=== PATIENT | male | born 1960 | race Caucasian/White ===

== ENCOUNTER 2017-02-03 14:44 | Emergency (ER) | payer OTHER ==
[2017-02-03] MEDS ORDERED: Sodium Chloride 0.9% 10 ML Syringe FLUSH PRN (15:09)
[2017-02-03 15:18] VITALS: BP 142/81
[2017-02-03 16:11] LABS: CHLORIDE,CL 105 mmol/L (98-107); SODIUM,NA 142 mmol/L (136-145)
--- NOTE | 2017-02-03 22:17 | ER ---
Date of Service: 02/03/2017 SUBJECTIVE: Jesenia presents to the emergency room with complaints of chronic fatigue. He states he has been experiencing this for over a month. The patient states that he occasionally has issues with his visual acuity. He states that this is an intermittent problem and he states that he is not experiencing this today. He also complains of lack of appetite. He states that he will have a small bite of food and then be full and nauseated and unable to eat anything else. The patient does have a history of vitamin D deficiency and vitamin B12 deficiency and previously had been on these medications but stopped taking them on the advice of his chiropractor. He also has a history of hypertension and stopped taking his antihypertensive agents. He was hospitalized in 2013 with hypokalemia and also was on oral potassium and he states that he is currently not taking this either. He states that he is again fatigued and is experiencing chills and vision changes. PAST MEDICAL HISTORY: 1. Hypertension. 2. Vitamin D deficiency. 3. Vitamin B12 deficiency. 4. Hypokalemia. MEDICATIONS: None. ALLERGIES: NKDA. REVIEW OF SYSTEMS: General: Positive for chills, weakness, and fatigue. HEENT: No sore throat, rhinorrhea, congestion. Respiratory: No shortness of breath. Cardiac: Denies any substernal chest pain. No jaw, arm, neck, or back pain. Gastrointestinal: Positive for early satiety and postprandial nausea. Denies any melena, hematochezia, or hematemesis. : Denies any dysuria. Musculoskeletal: Does complain of some mild myalgias and arthralgias. Neurologic: Occasionally states that he feels like he is going to "pass out." He denies any numbness or tingling in his extremities or difficulties with speech or ambulation or other focal neuro symptoms. PHYSICAL EXAMINATION: General: This is a 56-year-old male patient, who is in no acute distress. Vital Signs: Blood pressure is 142/81, pulse rate 79, temperature is 35.9, respiratory rate 16, O2 saturations 98%. Skin: Warm, pink, and dry. HEENT: Head is normocephalic, atraumatic. Eyes, PERRLA. Extraocular movements are intact. There is no funduscopic papilledema noted. Visual higginbotham are within normal limits. Mouth, oral mucosa is moist. Ears, TMs are clear. Neck: Supple without masses. There is no lymphadenopathy. No carotid bruits are noted. Lungs: Clear to auscultation. Heart: Regular rate and rhythm. No murmur noted. Normal S1, S2. No S3 or S4. Abdomen: Soft, nontender. There is no hepatosplenomegaly noted. There is no masses noted. Extremities: Without edema. Neurologic: He is alert and oriented, answers all questions appropriately. His speech is fluent. His gait is within normal limits. LABORATORY DATA: WBCs 8.5, hemoglobin is 14.8, platelets are 224. PT is 10.6, INR is 0.9. Sodium is 142, potassium is 3.3, chloride is 105, bicarb is 25, BUN is 12, creatinine is 1.1. Creatinine clearance is 80.34. GFR is greater than 60. Glucose is 86, lactic acid is 1.2, calcium is 9.2, corrected calcium is 9.12. Total bilirubin is 0.8, AST is 25, ALT is 41, alkaline phosphatase is 83, CK is 123, CK-MB is 0.8. Troponin is less than 0.2, total protein is 7.3, albumin is 3.2, TSH is 1.408. Urinalysis reveals specific gravity of 1.020. PH is 7.0, negative for protein and glucose, nitrates and leukocytes. Does have a trace of ketones. Free T3 and T4 and B12 were obtained and are pending. CT scan of the patient's brain was obtained and did not reveal any acute pathology. ASSESSMENT: 1. Vertigo. 2. Lightheadedness. 3. Weakness. 4. Fatigue. PLAN: I did start him back on his potassium. We will await the results of his B12 to determine if he needs to start on this. I did arrange a carotid ultrasound for this patient. The Radiology Department will contact him regarding an appointment. Appointment was made for him to follow up with Dr. Bush at [facility] on Thursday, 02/10 at 2:20 p.m. in the afternoon. He is return to the ER if he develops any chest pain, shortness of breath, weakness, lightheadedness, headache, difficulties with speech or ambulation, or other worrisome signs or symptoms. All questions were answered. MWK: 02/03/2017 17:40:22 MODL: 02/03/2017 22:07:37 /[id number]
== END 2017-02-03 18:10 | disposition home or self-care (01) ==
LOC: VM.ED 14:44
DX: R53.83 Other fatigue (principal); R42 Dizziness and giddiness; R53.1 Weakness; I10 Essential (primary) hypertension
CPT/HCPCS: 36415; 70450; 80053; 81001; 82550; 82553; 82607; 83605; 84439; 84443; 84481; 84484; 85025; 85610; 86140; 93005; 99285

== ENCOUNTER 2017-02-26 07:55 | Day surgery (SDC) | payer OTHER ==
[~2017-02-26 07:55] MED LIST: Lactated Ringers 1,000 ML IV SCH
[2017-02-26] MEDS ORDERED: Propofol 200 MG/20 ML SDV ONE (09:31)
[2017-02-26] MEDS ORDERED: fentaNYL 100 MCG/2 ML SDV ONE (09:32)
--- NOTE | 2017-02-26 12:37 | OR ---
DATE OF SURGERY: 02/26/2017. REFERRING PROVIDER: Yordan Bush M.D. PRE-OPERATIVE DIAGNOSES: History of colon polyps. Last colonoscopy in Jan, 2014 revealed 2 tubular adenomas. There is no known family history of colon cancer or colon polyps. POST-OPERATIVE DIAGNOSES: 1. Mild diffuse diverticulosis. 2. Mild hemorrhoids, internal. 3. Right-sided palpable prostate nodule. I do recommend referral to Urology for further evaluation. PROCEDURE: Colonoscopy. SURGEON: Sergo Gunderson M.D. ANESTHESIA: Monitored anesthesia care. BOWEL PREP: Good. DESCRIPTION OF OPERATION: Yaneth is a 56-year-old male. The patient was brought to the endoscopy suite after discussing risks and benefits of the procedure. Informed consent was obtained for conscious sedation and colonoscopy with or without biopsy and/or polypectomy. We also discussed possibility of missed lesions. Pre-procedure exam was unremarkable. IV, oxygen, and monitors were placed. The patient was placed in the left lateral decubitus position. Sedation was administered and a digital rectal exam was performed and it did reveal a palpable right-sided prostate nodule which was smooth. Colonoscope was passed into the rectum and slowly advanced all the way to the cecum. Cecum was viewed and photographed. The colonoscope was slowly withdrawn and the mucosa was closed observed in a direct circumferential manner. Colonoscope was slowly withdrawn. Mucosa was closely observed in a direct circumferential manner. There was diffuse mild diverticulosis noted. Otherwise, the ascending colon was unremarkable. Transverse colon was unremarkable. Descending colon was unremarkable. Sigmoid colon was unremarkable. Retroflexion was performed. Rectal mucosa did reveal some mild internal hemorrhoids, not acutely inflamed. Scope was removed. The patient tolerated the procedure well. The patient was monitored until that baseline status. Discharge instructions were reviewed and the patient was discharged in good condition. COMPLICATIONS: None. TOTAL TIME: 19 minutes. ESTIMATED BLOOD LOSS: None. RECOMMENDATIONS/FOLLOW-UP: Recommend repeat colonoscopy in 5 years given the previous history of colon polyps. We did discuss the right-sided prostate nodule and I did recommend the patient to contact his PCP to obtain Urology referral for further evaluation of this. I would like to kindly thank Dr. Yordan Bush for this referral. DMB: 02/26/2017 11:12:22 MODL: 02/26/2017 12:21:30 /[id number]
[2017-02-26 13:36] VITALS: BP 116/62
== END 2017-02-26 12:21 | disposition home or self-care (01) ==
LOC: VM.SDS 07:55
PROVIDERS: ATTEND Family Medicine
DX: Z86.010 Personal history of colon polyps (principal)
CPT/HCPCS: 45380; J2704; J3010; J7120

== ENCOUNTER 2017-12-23 11:39 | Emergency (ER) | payer BC, OTHER ==
[2017-12-23 12:02] VITALS: BP 118/73
[2017-12-23] MEDS ORDERED: Sodium Chloride 0.9% 10 ML Syringe FLUSH PRN (12:22)
--- NOTE | 2017-12-23 12:46 | EDM.PDOC ---
ED HPI GENERAL MEDICAL PROBLEM - General Chief Complaint: Abdominal Pain Stated Complaint: LOWER ABDOMINAL PAIN Time Seen by Provider: 12/23/17 11:51 Source of Information: Reports: Patient, RN, RN Notes Reviewed History Limitations: Reports: No Limitations - History of Present Illness INITIAL COMMENTS - FREE TEXT/NARRATIVE: Patient presents to the ED at [facility] complaining of left lower abdominal /pelvic pain that started about a week ago, and became worse last evening. The patient denies any changes in foods or medications. No recent abdominal surgeries. Patient states his stools are loose and yellow appearing. No diarrhea. No N/V. He states the pain is sharp and stabbing at times, especially with walking and movement. No radiation of the pain. No pain when lying down and resting. He has BM's on a daily basis. He denies any issues with urination, but states "my prostate is the size of a softball." No recent infection. Denies any fever or chills. Onset: Gradual Onset Date: 12/16/17 Duration: Waxing/Waning Location: Reports: Abdomen Quality: Reports: Sharp, Stabbing Severity: Moderate Improves with: Reports: Rest Worsens with: Reports: Movement Context: Denies: Activity, Sick Contact, Trauma Associated Symptoms: Reports: No Other Symptoms Treatments ASSISTANT NEWS DIRECTOR: Reports: Other (see below) (none) Left Lower Abdomen Pain Score (Numeric/FACES): 5 - Related Data Allergies Allergy/AdvReac Type Severity Reaction Status Date / Time hydrocodone Allergy Itching Verified 12/23/17 12:05 Home Meds: Home Meds Cholecalciferol (Vitamin D3) [Vitamin D3] 400 units PO DAILY 02/19/17 [History] Losartan/Hydrochlorothiazide [Losartan-HCTZ 100-25 MG] 0.5 tab PO DAILY [History] Naproxen Sodium 1 tab PO Q12HR 02/19/17 [History] Omeprazole 20 mg PO DAILY 02/19/17 [History] Potassium Chloride [Klor-Con M20] 10 meq PO BID 02/19/17 [History] Multivitamin [Multi-Day Vitamins] 1 tab PO DAILY 02/26/17 [History] Ubidecarenone [Co Q-10] 400 mg PO DAILY 02/26/17 [History] Past Medical History HEENT History: Reports: Cataract, Hard of Hearing Other HEENT History: posterior vitreous detachment. pinguecula. presbyopia. pseudophakia Cardiovascular History: Reports: High Cholesterol, Hypertension Respiratory History: Reports: None Gastrointestinal History: Reports: Colon Polyp, GERD Genitourinary History: Reports: Prostate Disorder Other Genitourinary History: erectile dysfunction. urinary urgency Musculoskeletal History: Reports: Arthritis, Back Pain, Chronic Other Musculoskeletal History: arthralgia. sciatica bilateral Other Neuro History: hx lyme disease Psychiatric History: Reports: Depression Other Psychiatric History: chews tobacco. obesity. fatigue Endocrine/Metabolic History: Reports: None Other Hematologic History: hypomagnesium. hypokalemia Immunologic History: Reports: None Oncologic (Cancer) History: Reports: None Dermatologic History: Reports: None - Past Surgical History Head Surgeries/Procedures: Reports: None HEENT Surgical History: Reports: Cataract Surgery Cardiovascular Surgical History: Reports: None GI Surgical History: Reports: Colonoscopy Other Male Surgeries/Procedures: partial nephrectomy Neurological Surgical History: Reports: None Musculoskeletal Surgical History: Reports: None Social & Family History - Tobacco Use Smoking Status *Q: Unknown Ever Smoked Years of Tobacco use: 20 Used Tobacco, but Quit: Yes Month/Year Tobacco Last Used: oct 2012 Second Hand Smoke Exposure: No - Alcohol Use Days Per Week of Alcohol Use: 0 - Recreational Drug Use Recreational Drug Use: No Drug Use in Last 12 Months: No ED ROS GENERAL - Review of Systems Review Of Systems: See Below Constitutional: Denies: Fever, Chills, Weakness Respiratory: Denies: Shortness of Breath, Cough Cardiovascular: Denies: Chest Pain, Palpitations GI/Abdominal: Reports: Abdominal Pain. Denies: Black Stool, Bloody Stool, Diarrhea, Nausea, Vomiting Musculoskeletal: Denies: Back Pain Skin: Reports: No Symptoms Neurological: Reports: No Symptoms ED EXAM, GI/ABD - Physical Exam Exam: See Below Exam Limited By: No Limitations General Appearance: Alert, No Apparent Distress Respiratory/Chest: No Respiratory Distress, Lungs Clear, Normal Breath Sounds Cardiovascular: Normal Peripheral Pulses, Regular Rate, Rhythm GI/Abdominal Exam: Tender (central lower pelvis), Abnormal Bowel Sounds ( Hypoactive). No: Distended, Rebound Neurological: Alert, Oriented Skin Exam: Warm, Dry, Intact, Normal Color Course - Vital Signs Last Recorded V/S: Last Vital Signs Temp 36.4 C 12/23/17 11:55 Pulse 74 12/23/17 11:55 Resp 16 12/23/17 11:55 BP 118/73 12/23/17 11:55 Pulse Ox 97 12/23/17 11:55 - Orders/Labs/Meds Orders: Active Orders 24 hr Category Date Time Status Abdomen Pelvis w Cont [CT] Stat Exams 12/23/17 12:22 Taken UA W/MICROSCOPIC [URIN] Stat Lab 12/23/17 13:14 Ordered Sodium Chloride 0.9% [Saline Flush] Med 12/23/17 12:22 Active 10 ml FLUSH ASDIRECTED PRN Peripheral IV Insertion Adult [OM.PC] Routine Oth 12/23/17 12:22 Ordered Medication Orders Sodium Chloride (Saline Flush) 10 ml FLUSH ASDIRECTED PRN PRN Reason: Keep Vein Open Labs: Laboratory Tests 12/23/17 12/23/17 12/23/17 Range/Units 12:36 12:36 12:36 WBC 8.4 (4.0-10.0) x10^3/uL RBC 4.51 (4.5-6.0) x10^6/uL Hgb 15.0 (14.0-18.0) g/dL Hct 41.2 (40.0-52.0) % MCV 91.4 D (78.0-93.0) fL MCH 33.3 H (26.0-32.0) pg MCHC 36.4 H (32.0-36.0) g/dL RDW Coeff of Declan 13.3 (10.0-15.0) % Plt Count 215 (130-400) x10^3/uL Neut % (Auto) 74.6 (50.0-80.0) % Lymph % (Auto) 16.2 L (25.0-50.0) % [place] % (Auto) 6.8 (2.0-11.0) % Eos % (Auto) 1.8 (0.0-4.0) % Baso % (Auto) 0.6 (0.2-1.2) % Sodium 132 L D (136-145) mmol/L Potassium 3.1 L (3.5-5.1) mmol/L Chloride 102 (98-107) mmol/L Carbon Dioxide 28 (21-32) mmol/L Anion Gap 5.1 BUN 15 (7-18) mg/dL Creatinine 1.0 (0.70-1.30) mg/dL Est Cr Clr Drug Dosing 79.54 mL/min Estimated GFR (MDRD) > 60 Glucose 104 (74-106) mg/dL Lactic Acid 1.0 (0.4-2.0) mmol/L Calcium 9.1 (8.5-10.1) mg/dL Corrected Calcium 9.34 (8.5-10.1) mg/dL Total Bilirubin 0.7 (0.2-1.0) mg/dL AST 22 (15-37) U/L ALT 38 (16-63) U/L Alkaline Phosphatase 73 (46-116) U/L C-Reactive Protein < 0.2 (<=0.9) mg/dL Total Protein 7.0 (6.4-8.2) g/dL Albumin 3.7 (3.4-5.0) g/dL Globulin 3.3 Albumin/Globulin Ratio 1.12 Amylase 70 (25-115) U/L Lipase 1254 H (73-393) U/L Urine Color (YELLOW) Urine Appearance (CLEAR) Urine pH (5.0-8.0) Ur Specific Andrews Urine Protein (NEGATIVE) mg/dL Urine Glucose (UA) (NEGATIVE) mg/dL Urine Ketones (NEGATIVE) mg/dL Urine Occult Blood (NEGATIVE) Urine Nitrite (NEGATIVE) Urine Bilirubin (NEGATIVE) Urine Urobilinogen (0.2) EU/dL Ur Leukocyte Esterase (NEGATIVE) Urine RBC (NOT SEEN) /HPF Urine WBC (NOT SEEN) /HPF Ur Squamous Epith Cells (NEGATIVE) /HPF Urine Bacteria (NEGATIVE) /HPF Urine Mucus (NEGATIVE) /LPF 12/23/17 Range/Units 13:14 WBC (4.0-10.0) x10^3/uL RBC (4.5-6.0) x10^6/uL Hgb (14.0-18.0) g/dL Hct (40.0-52.0) % MCV (78.0-93.0) fL MCH (26.0-32.0) pg MCHC (32.0-36.0) g/dL RDW Coeff of Declan (10.0-15.0) % Plt Count (130-400) x10^3/uL Neut % (Auto) (50.0-80.0) % Lymph % (Auto) (25.0-50.0) % [place] % (Auto) (2.0-11.0) % Eos % (Auto) (0.0-4.0) % Baso % (Auto) (0.2-1.2) % Sodium (136-145) mmol/L Potassium (3.5-5.1) mmol/L Chloride (98-107) mmol/L Carbon Dioxide (21-32) mmol/L Anion Gap BUN (7-18) mg/dL Creatinine (0.70-1.30) mg/dL Est Cr Clr Drug Dosing mL/min Estimated GFR (MDRD) Glucose (74-106) mg/dL Lactic Acid (0.4-2.0) mmol/L Calcium (8.5-10.1) mg/dL Corrected Calcium (8.5-10.1) mg/dL Total Bilirubin (0.2-1.0) mg/dL AST (15-37) U/L ALT (16-63) U/L Alkaline Phosphatase (46-116) U/L C-Reactive Protein (<=0.9) mg/dL Total Protein (6.4-8.2) g/dL Albumin (3.4-5.0) g/dL Globulin Albumin/Globulin Ratio Amylase (25-115) U/L Lipase (73-393) U/L Urine Color Yellow (YELLOW) Urine Appearance Clear (CLEAR) Urine pH 5.0 (5.0-8.0) Ur Specific Andrews <=1.005 Urine Protein Negative (NEGATIVE) mg/dL Urine Glucose (UA) Negative (NEGATIVE) mg/dL Urine Ketones Negative (NEGATIVE) mg/dL Urine Occult Blood Negative (NEGATIVE) Urine Nitrite Negative (NEGATIVE) Urine Bilirubin Negative (NEGATIVE) Urine Urobilinogen 0.2 (0.2) EU/dL Ur Leukocyte Esterase Negative (NEGATIVE) Urine RBC 0-5 (NOT SEEN) /HPF Urine WBC 0-5 (NOT SEEN) /HPF Ur Squamous Epith Cells Not seen (NEGATIVE) /HPF Urine Bacteria Rare (NEGATIVE) /HPF Urine Mucus Not seen (NEGATIVE) /LPF Meds: Medications Generic Name Dose Route Start Last Admin Trade Name Freq PRN Reason Stop Dose Admin Sodium Chloride 10 ml 12/23/17 12:22 Saline Flush FLUSH ASDIRECTED PRN Keep Vein Open Discontinued Medications Generic Name Dose Route Start Last Admin Trade Name Celine PRN Reason Stop Dose Admin Iopamidol 100 ml 12/23/17 12:26 12/23/17 13:21 Isovue-300 (61%) IVPUSH 12/23/17 12:27 100 ml ONETIME ONE Administration - Radiology Interpretation Free Text/Narrative:: CT Abd/Pelvis: See scanned report CT Results Date: 12/23/17 CT Results Time: 13:51 Departure - Departure Time of Disposition: 14:23 Disposition: Home, Self-Care 01 Condition: Good Clinical Impression: Abdominal pain Qualifiers: Abdominal location: lower abdomen, unspecified Qualified Code(s): R10.30 - Lower abdominal pain, unspecified - Discharge Information Instructions: Abdominal Pain, Adult, [id number] Referrals: Yordan Bush MD [Primary Care Provider] - Forms: ED Department Discharge Additional Instructions: 1. Stay well hydrated and rest 2. Eat a bland liquid diet until seen by Dr. Bush 3. Avoid and heavy, greasy foods 4. May alternate Tylenol/Advil for the pain 5. You have been scheduled to see Dr. Bsuh December 29, at 8:40am at the [facility] in [place] 6. Call with any questions or concerns - Problem List Review Problem List Initiated/Reviewed/Updated: Yes - My Orders Last 24 Hours: My Active Orders 12/23/17 12:22 Abdomen Pelvis w Cont [CT] Stat Sodium Chloride 0.9% [Saline Flush] 10 ml FLUSH ASDIRECTED PRN Peripheral IV Insertion Adult [OM.PC] Routine 12/23/17 13:14 UA W/MICROSCOPIC [URIN] Stat - Assessment/Plan Last 24 Hours: My Active Orders 12/23/17 12:22 Abdomen Pelvis w Cont [CT] Stat Sodium Chloride 0.9% [Saline Flush] 10 ml FLUSH ASDIRECTED PRN Peripheral IV Insertion Adult [OM.PC] Routine 12/23/17 13:14 UA W/MICROSCOPIC [URIN] Stat Assessment:: Abdominal Pain, unknown etiology Plan: Labs and CT discussed with Dr. Barrett. No reason for admission. Reviewed with patient. Recommend a bland liquid diet until seen by PCP next week. Patient needs to rest the bowel. Patient verbalized understanding.
[2017-12-23 13:03] LABS: CHLORIDE,CL 102 mmol/L (98-107); SODIUM,NA 132 mmol/L (136-145)
[2017-12-23] MEDS: Iopamidol 612 MG/ML 100 ML Bottle IVPUSH ONE (13:21)
== END 2017-12-23 14:35 | disposition home or self-care (01) ==
LOC: VM.ED 11:39
DX: R10.30 Lower abdominal pain, unspecified (principal); K21.9 Gastro-esophageal reflux disease without esophagitis; Z88.5 Allergy status to narcotic agent; Z79.899 Other long term (current) drug therapy
CPT/HCPCS: 74177; 80053; 81001; 82150; 83605; 83690; 85025; 86140; 99284; Q9967